=== PATIENT | female | born 1995 | race Caucasian/White ===

== ENCOUNTER → 2020-12-03 | Outpatient (CLI) | payer OTHER ==
[~2020-12-03] MED LIST: AUGMENTIN 875-1 EACH PO
== END ==
LOC: KOH-I 13:55
DX: R05 Cough (principal); M54.2 Cervicalgia; M54.5 Low back pain; M54.6 Pain in thoracic spine
CPT/HCPCS: 71046; 72050; 72070; 72100

== ENCOUNTER 2022-02-11 00:26 | Emergency (ER) | payer OTHER ==
[2022-02-11 01:47] LABS: HEMOGLOBIN 14.7 gm/dl (12.3-15.3); RED BLOOD COUNT 4.57 M/UL (4.00-5.10)
[2022-02-11] MEDS ORDERED: OMNICEF 300 MG300 MG PO (02:08)
[2022-02-11 02:11] LABS: BUN/CREATININE RATIO 22 (0-10)
== END 2022-02-11 02:20 | disposition home or self-care (01) ==
LOC: ER1 00:26
PROVIDERS: Family Medicine
DX: N39.0 Urinary tract infection, site not specified (principal); F17.210 Nicotine dependence, cigarettes, uncomplicated; Z88.2 Allergy status to sulfonamides
CPT/HCPCS: 80053; 81001; 84703; 85025; 87086; 96374; 99284; J1885; J7030

== ENCOUNTER 2022-02-17 21:15 | Emergency (ER) | payer OTHER ==
[~2022-02-17 21:15] MED LIST changes: +OMNICEF 300 MG300 MG PO
[2022-02-17 21:43] LABS: HEMOGLOBIN 15.6 gm/dl (12.3-15.3); RED BLOOD COUNT 4.75 M/UL (4.00-5.10); WHITE BLOOD COUNT 14.4 K/UL (4.5-11.0)
[2022-02-17 22:01] LABS: BUN/CREATININE RATIO 16 (0-10)
== END 2022-02-18 00:42 | disposition home or self-care (01) ==
LOC: ER1 21:15
PROVIDERS: Physician Assistant
DX: R10.13 Epigastric pain (principal); F17.210 Nicotine dependence, cigarettes, uncomplicated; Z88.2 Allergy status to sulfonamides
CPT/HCPCS: 80053; 81001; 83690; 84703; 85025; 99284; Q9967